=== PATIENT | female | born 1985 | race Two or more races ===

== ENCOUNTER 2018-09-20 17:18 | Emergency (ER) | payer OTHER ==
[~2018-09-20] VITALS: Ht 162.6 cm; Wt 70.3 kg
[~2018-09-20 17:18] MED LIST: ASPIR 8181 MG; INTESTINEX680 MG PO; KETO10TA2 PO; ZANTAC150 MG PO; ZOLOFT20 MG/ML
[2018-09-20] MEDS ORDERED: BACTRIM DS TAB1 EACH PO (22:15)
[2018-09-20] MEDS ORDERED: IBUPROFEN800 MG PO (22:15)
== END 2018-09-20 22:51 | disposition home or self-care (01) ==
LOC: ER 17:18
DX: N39.0 Urinary tract infection, site not specified (principal); M54.5 Low back pain

== ENCOUNTER 2020-11-22 10:24 | Emergency (ER) | payer OTHER ==
[~2020-11-22] VITALS: Ht 162.6 cm; Wt 70.3 kg
[~2020-11-22 10:24] MED LIST changes: +BACTRIM DS TAB1 EACH PO; +IBUPROFEN800 MG PO
[2020-11-22] MEDS ORDERED: WELLBUTRIN XL300 MG (10:51)
[2020-11-22] MEDS ORDERED: MACRODANTIN25 MG (10:52)
[2020-11-22] MEDS ORDERED: PYRIDIUM DS200 MG PO (16:24)
== END 2020-11-22 16:32 | disposition home or self-care (01) ==
LOC: ER 10:24
DX: N30.80 Other cystitis without hematuria (principal); R10.2 Pelvic and perineal pain